=== PATIENT | female | born 1990 | race Caucasian/White ===

== ENCOUNTER → 2017-02-02 18:09 | Observation (INO) ==
[2017-02-02 17:33] LABS: Bilirubin,Urine Negative (Negative); Blood,Urine Negative (Negative); Clarity,Urine Cloudy (Clear); Color,Urine Yellow (Yellow); Glucose,Urine (UA) Normal (Normal); Ketones,Urine Negative (Negative); Leukocyte Esterase,Urine Trace (Negative); Nitrite,Urine Negative (Negative); PH,Urine 6.5 pH Units (5.0-8.0); Protein,Urine Negative (Neg-Trace); Specific Gravity,Urine 1.012 (1.010-1.025); Urobilinogen,Urine Normal (Normal)
[2017-02-02 17:36] LABS: Bacteria,Urine Few per hpf (None-Few); Hyaline Casts,Urine None Seen per lpf (None-Few); RBC,Urine 0-3 per hpf (0-3); Squamous Epithelial Cell,Urine Many per lpf (None-Few)
--- NOTE | 2017-02-02 17:38 | Discharge Summary ---
Date of Encounter: 02/02/17 Time of Encounter: 17:39 - Discharge Diagnosis (1) 34 weeks gestation of Priority: Primary Status: Acute Comments: observation for rule out rupture of membranes (2) Vaginal discharge during in third trimester Priority: Secondary Status: Acute Comments: Negative nitrazine Negative Fern - Discharge Medications Home Medications: Vit Calc,Iron,Folic [ Vitamins] 1 tab PO DAILY 02/02/17 [ History] Allergies/Adverse Reactions: Allergies clarithromycin [From Biaxin] Allergy (Verified 02/02/17 17:03) Vomiting Date of admission: 02/02/17 16:58 Primary care physician: PCP NEETU Discharging clinician: Jacki Nye Anticipated date of discharge: 02/02/17 - Patient Status Disposition: Home, Self-Care Condition: Good - Discharge Instructions Follow Up With: NEETU,PCP [Primary Care Provider] - Brittany Monique DO [Partnered Physician] - - Diet and Activity Activity: increase activity as tolerated Diet: regular diet 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 Patient reports occasional cramping. Denies any urinary symptoms, vaginal itching or burning or VB. Patient reports + FM. Time Attestation: Total time spent providing and/or coordinating discharge services: Time Spent: Less than 30 minutes Exam - Constitutional General appearance IM: A&O X 3, pleasant, answers questions appropriately - Respiratory Respiratory exam: Present: CTAB - Cardiovascular Cardiovascular exam IM: Present: RRR, +S1, +S2 - GI/Abdominal GI/Abdominal exam IM: normal bowel sounds - Other Additional findings: FHR 140 bpm moderate variability +15x15 accels no decels noted. CAt. 1 tracing. No contractions. Speculum exam: no pooling, small amount of white discharge noted. Fern negative. Nitrazine negative. - VTE Reasons for not Prescribing Prophylaxis: Treatment not Indicated - Low risk for VTE
== END | disposition home or self-care (01) ==
LOC: 1NENULAB
PROVIDERS: ADMIT Advanced Practice Midwife; ATTEND Obstetrics & Gynecology

== ENCOUNTER 2017-03-04 09:40 | Inpatient (IN) ==
[2017-03-04 02:29] LABS: Bilirubin,Urine Negative (Negative); Blood,Urine Small (Negative); Clarity,Urine Clear (Clear); Color,Urine Yellow (Yellow); Glucose,Urine (UA) Normal (Normal); Ketones,Urine >=160 mg/dL (Negative); Leukocyte Esterase,Urine Trace (Negative); Nitrite,Urine Negative (Negative); Protein,Urine Trace mg/dL (Neg-Trace); Specific Gravity,Urine >= 1.030 (1.010-1.025); Urobilinogen,Urine Normal (Normal)
[2017-03-04 02:38] LABS: Squamous Epithelial Cell,Urine Moderate per lpf (None-Few)
[2017-03-04 02:39] LABS: Bacteria,Urine Moderate per hpf (None-Few); Mucus,Urine Moderate (Few); WBC,Urine 0-3 per hpf (0-3)
--- NOTE | 2017-03-04 04:52 | OB/GYN History & Physical ---
Date of Encounter: 03/04/17 Time of Encounter: 04:45 Assessment and Plan (1) 38 weeks gestation of Current visit: Yes Status: Acute admit for observation if patient continues to actively labor will admit for delivery CBC and Plock at this time (2) Group B streptococcal infection during Current visit: Yes Status: Acute If continuance of cervical change will start GBS prophylaxis. (3) Gestational diabetes mellitus Current visit: Yes Status: Acute Glucose level drawn accuchecks Q 2 hours Qualifiers: Gestational diabetes mellitus control: diet-controlled Trimester: third trimester Qualified Code(s): O24.410 - Gestational diabetes mellitus in , diet controlled History of Present Illness Chief complaint: Contrations HPI: Ms. Ruiz is a 26 year old female @ 38w3d presents to labor and delivery with complaints of contractions. Patient denies LOF or VB. Patient denies any urinary symptoms. Patient reports +FM. Patient denies any intercourse. 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 Patient reports history of one "pimple" that was painful but she thought was from shaving. Patient denies ever taking medication for outbreaks. Both an external perineal exam and vaginal exam with speculum was completed and no sign of HSV outbreak was found. Blood type: O+, Rubella: Immune, Hep B: Nonreactive, Hep C: reactive, Group B Strep: Positive. Patient is a diet controlled GDM. Past Med Surg Social Fam HX - Past Medical History Source: patient Medical history: seizures Psychiatric history: no psych history - Past Surgical History Surgical History: other (ACL repair and wisdom teeth) - Social History Smoking Status: Never smoker Smokeless Tobacco Status: No Alcohol use: none Drug use: none Current living situation: Home - Independent Activity Level: Independent ambulation Recent Out of Country Travel Within the Last 8 Weeks: No Exposure or Possible Exposure to Illness During Travel: No - Family History Mother Living Status: Still Living Hx Family Cardiac Disorders: No Hx Family Respiratory Disorders: No Hx Family Cancer: No Hx Family GI Disorders: No Hx Family Genitourinary Disorders: No Hx Family Endocrine Disorder: No Hx Family Musculoskeletal Disorders: No Hx Family Neuromuscular Disorders: No Hx Family Neurologic Disorders: No Hx Family HEENT Disorders: No Hx Family Autoimmune Disorders: No Hx Family Reproductive Disorders: No Hx Family Psychosocial Disorders: No Hx Family Medical Disorders: No Obstetrical History - Pregnancies : 2 Para: 1 Term: 1 : 0 Ab's: 0 Livin Medications and Allergies Vit Calc,Iron,Folic [ Vitamins] 1 tab PO DAILY 02/02/17 [ History] Calcium Carbonate [Tums] 1,000 mg PO Q4HR 03/04/17 [History] Allergies clarithromycin [From Biaxin] Allergy (Verified 02/02/17 17:03) Vomiting Review of System OB - Constitutional Constitutional ROS IM: no chills, no fever(s), no night sweats - Cardiovascular Cardiovascular: no chest pain, no irregular heart rhythm, no palpitations, no syncope - Respiratory Respiratory: no cough, no dyspnea - Gastrointestinal Gastrointestinal: no constipation, no diarrhea, no heartburn, no nausea, no vomiting - Genitourinary Genitourinary: no abnormal vaginal bleeding, no dysuria, no flank pain, no urinary urgency, no vaginal discharge, no vaginal odor Exam - Constitutional Constitutional: well developed, well nourished, no acute distress, average body habitus - HEENT HEENT: Normocephaly, Mucus Membranes Moist - Neck Neck exam: full ROM, supple - Lungs Respiratory exam: CTAB - Cardiovascular Cardiovascular exam: RRR, +S2 - Abdomen Abdomen: Present: bowel sounds normal, gravid, non tender - Extremities Extremities exam: full ROM, normal capillary refill, normal inspection Deep Tendon Reflex Grade: 2+ Normal - Vagina Vagina: Present: normal moisture - Cervix Dilation: 2 (per RN) - Uterus Uterus exam: Present: normal size, normal contour - Anus/Rectum Anus/Rectum: Present: normal perianal skin - Comments Comments: FHR 135 bpm moderate variability +15x15 accels no decels noted. Contractions 1- 4 min apart. Cat. 1 tracing. Speculum exam: small amount of clear watery discharge noted. Negative nitrazine, negative Fern. No signs of HSV outbreak. Results Abnormal lab results Ur Specific [place] >= 1.030 (1.010-1.025) H 03/04/17 02:20 Urine Ketones >=160 mg/dL (Negative) H 03/04/17 02:20 Urine Blood Small (Negative) H 03/04/17 02:20 Ur Leukocyte Esterase Trace (Negative) H 03/04/17 02:20 Ur Squamous Epith Cells Moderate per lpf (None-Few) H 03/04/17 02:20 Urine Bacteria Moderate per hpf (None-Few) H 03/04/17 02:20 Urine Mucus Moderate (Few) H 03/04/17 02:20 Ur Culture Indicated? YES (NO) A 03/04/17 02:20 All other labs normal. - VTE Reasons for not Prescribing Prophylaxis: Treatment not Indicated - Low risk for VTE
[2017-03-04 04:56] LABS: Basophils % 0.2 %; Eosinophils % 0.2 %; Hematocrit 35.8 % (35.3-44.9); Hemoglobin 12.1 g/dL (11.5-15.4); Immature Granulocytes % 0.9 % (0-4); Lymphocytes # 2.9 K/mcL (0.6-4.6); Lymphocytes % 26.7 %; Mean Corpuscular HGB Conc 33.8 g/dL (31.6-35.5); Mean Corpuscular Hemoglobin 28.9 pg (28.0-33.3); Mean Corpuscular Volume 85.6 fL (83.0-100.0); Mean Platelet Volume 11.4 fL (9.4-12.4); Monocytes # 0.6 K/mcL (0.0-1.3); Monocytes % 5.6 %; Neutrophils # 7.3 K/mcL (1.6-8.9); Platelet Count 154 K/mcL (140-400); Red Blood Count 4.18 M/mcL (3.82-4.97); Red Cell Distribution Width 12.8 % (11.5-14.5); Segmented Neutrophils % 66.4 %
[2017-03-04] MEDS: Ringers Solution, Lactated 1,000 ML IVC SCH ×3 (05:06→13:44)
--- NOTE | 2017-03-04 09:27 | OB Labor Progress Note ---
Date of Encounter: 03/04/17 Time of Encounter: 09:30 Labor Progress Note - Subjective Subjective: Pt states contractions are getting stronger. - Cervix Cervix: 3/80/-1 - Heart Tones Heart Tones: Category I - Plan Plan: Admit for labor. Begin PCN for GBS ppx. Will augment with AROM with second dose of PCN if needed. Epidural when requested. Anticipate .
[~2017-03-04 09:40] MED LIST: Penicillin G Potassium 5,000,000 UNIT in D5% in Water (Mini-Bag+) 100 ML IVPB ONE
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
[2017-03-04] MEDS ORDERED: Penicillin G Potassium 2,500,000 UNIT in D5% in Water 100 ML IVPB SCH (13:00)
--- NOTE | 2017-03-04 13:01 | OB Labor Progress Note ---
Date of Encounter: 03/04/17 Time of Encounter: 12:59 Labor Progress Note - Subjective Subjective: Pt reports contractions are continuing to get stronger. - Cervix Cervix: 4/80/-1, BBOW - Heart Tones Heart Tones: Category I - [place]: 2-4minutes - Interventions Interventions: AROM for large amount clear fluid - Plan Plan: Continue to monitor. Epidural when requested. Anticipate .
[2017-03-04] MEDS ORDERED: Ondansetron 4 MG/2 ML VIAL IVP PRN ×2 (13:32→14:55)
[2017-03-04] MEDS ORDERED: *HR* FentaNYL (PF) 100 MCG/2 ML VIAL ONE (13:58)
[2017-03-04] MEDS ORDERED: Epidural Premix (fent/bupiv) 110 ML EP ONE (13:58)
[2017-03-04] MEDS ORDERED: Bupivacaine-MPF 0.25% 10 ML VIAL ONE (13:58)
[2017-03-04] MEDS ORDERED: *HR* Phenylephrine 10 MG/ML VIAL ONE (13:59)
[2017-03-04] MEDS ORDERED: EPHEDrine 50 MG/ML VIAL ONE (14:37)
[2017-03-04] MEDS ORDERED: *HR* FentaNYL (PF) 100 MCG/2 ML VIAL EP ONE (14:55)
[2017-03-04] MEDS ORDERED: Bupivacaine-MPF 0.25% 10 ML VIAL EP ONE (14:55)
[2017-03-04] MEDS ORDERED: EPHEDrine 50 MG/ML VIAL IVP PRN (14:55)
[2017-03-04] MEDS ORDERED: Epidural Premix (fent/bupiv) 110 ML EP SCH (15:00)
--- NOTE | 2017-03-04 15:00 | Anesthesia Procedures ---
Date of Encounter: 03/04/17 Time of Encounter: 14:03 Procedures: Anesthesia - Epidural/Spinal Patient ID/Chart reviewed: Yes Patient examined: Yes OB Eval: Gestational age: 38.3 OB Eval: : 2 OB Eval: Hx Para: 1 OB Eval: Dilated at (cm): 4 OB Eval: Contractions: Non-stressed pattern Consent Obtained: Yes Supplemental Oxygen: None/Room Air Site Prep: Aseptic Technique, Sterile prep and drape, Povidone-Iodine 1% Patient position: upright Local Anesthetic: Lidocaine 1% Amount of Local Anesthetic used: 3 Touhy Needle Gauge: 18 Touhy Needle Depth (cm): 8 Catheter Depth at Skin (cm): 16 Test Dose (1.5% Lido + Epi): Volume given (mls): 3 Test Dose Result: Negative Loading Dose: 0.25% Marcaine (mls): 6 Loading Dose: Fentanyl (mcg): 100 Loading Dose Administered: Thru Catheter Infusion Med: 0.125% Bupivacaine w/ 2 mcg/ml Fentanyl Infusion Rate (mls/hr): [address]: Tegaderm, Tape Interspace Used: L4-L5 Loss of Resistance (JOLYNN): Yes Blood: No CSF: No Paresthesia: No Procedure: ALICIA placed in upright position 1st pass. Test dose negative. Bolus dose 6ml administered, BP decreased and FHT drop to 80s. Pt repositioned to left side, O2 administered, with return of BP and FHT WNL. Pt comfortable with loss of contractional discomfort. Vitals + FHT's: 1403 BP 134/76 P90 1427 Bolus BP 135/81 P 109 R 16 1433 97/46 P 127 Phenylephrine dose 200mcg 1500 BP 121/66 P 81 FHT 130s
--- NOTE | 2017-03-04 15:09 | OB Labor Progress Note ---
Date of Encounter: 03/04/17 Time of Encounter: 15:06 Labor Progress Note - Subjective Subjective: Pt reports no pain with contractions following epidural. - Cervix Cervix: 5/80/-1 - Heart Tones Heart Tones: bradycardia noted for a short time due to hypotension after epidural bolus. Pt repositioned and bolus given. 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 FHT returned to baseline. - [place]: 2-6 minutes - Interventions Interventions: IUPC placed. Patel catheter placed. Light yellow urine returned. Balloon inflated with 10ml. Pt tolerated well. - Plan Plan: Continue to monitor. Will augment with Pitocin as needed for adequate contractions. Anticipate .
[2017-03-04] MEDS ORDERED: Oxytocin 20 units/ LR 1000 mL 20 UNIT/1,000 ML BAG IVC SCH ×2 (15:15→20:38)
--- NOTE | 2017-03-04 18:42 | OB/GYN Procedure Note ---
Delivery - Delivery Date: 03/04/17 Provider: Fany Gaona Intrapartum events: none Delivery induction: none Delivery augmentation: rupture of membranes, pitocin - (s) A Delivery Date: 03/04/17 Delivery Time: 18:13 Presentation: vertex Position: LUCILLE Route of delivery: Gender: Male Pounds: 6 Ounces: 12 Weight Gram: 3055 kg at 1 minute: 8 at 5 mins: 9 Shoulder Dystocia: not encountered Specimens collected: cord blood Placenta: spontaneous Cord: nuchal cord, 3 umbilical vessels, nuchal reduced - Repair Episiotomy: none Laceration Description: None - Complications Delivery complications: none Delivery comments: 26 year-old presented for spontaneous onset of labor. She received an epidural and then was augmented with AROM and Pitocin. She progressed to over intact perineum for viable male weighing 6lbs 12oz with apgars 8/9. After a three minute delay the cord was clamped and cut and the placenta delivered spontaneous and intact. No lacerations were noted. EBL 100ml. Mother and baby stable in kangaroo care following delivery. - Disposition Mom disposition: stable in LDR [place] disposition: stable in LDR
[2017-03-04] MEDS ORDERED: Rho Immune Globulin 1,500 UNIT SYRINGE IM PRN (20:38)
[2017-03-04] MEDS ORDERED: Acetaminophen 325 MG TABLET PO PRN (20:38)
[2017-03-04] MEDS ORDERED: Measles/Mumps/Rubella Vacc 0.5 ML VIAL SQ PRN (20:38)
[2017-03-05] MEDS: Ibuprofen 600 MG TABLET PO PRN ×3 (03:43→20:45)
[2017-03-05] MEDS: Prenatal Vit/FA 1 EACH TABLET PO SCH (10:03)
--- NOTE | 2017-03-05 10:25 | OB/GYN Progress Note ---
Date of Encounter: 03/05/17 Time of Encounter: 10:23 - Assessment and Plan (1) Vaginal delivery Current Visit: Yes Status: Acute Pt meeting milestones. Anticipate discharge home PPD#2. (2) Gestational diabetes mellitus Current Visit: Yes Status: Acute Pt will need 2 hour GTT in 6 weeks. Qualifiers: Gestational diabetes mellitus control: diet-controlled Trimester: third trimester Qualified Code(s): O24.410 - Gestational diabetes mellitus in , diet controlled Subjective - Subjective Patient reports: appetite normal, voiding normally, pain well controlled, ambulating normally [place]: doing well Objective - Latest Vital Signs Latest vital signs: Vital Signs Temp Pulse Resp BP Pulse Ox 03/05/17 09:57 16 03/05/17 08:59 98.3 F 88 16 117/73 97 03/05/17 03:57 98.3 F 79 16 113/75 97 03/04/17 22:52 98.7 F 94 16 111/72 96 03/04/17 21:47 98.5 F 82 16 117/74 98 03/04/17 20:40 98.7 F 95 16 112/72 97 Intake and Output 03/04/17 03/05/17 03/05/17 23:59 07:59 15:59 Intake Total 1000 / 1000 1000 / 1000 720 / 720 Output Total 2250 / 2250 1200 / 1200 200 / 200 Balance -1250 / -1250 -200 / -200 520 / 520 Intake: IV Fluids 1000 / 1000 Pitocin 20 unit In 1,000 1000 / 1000 ml @ Per Protocol IVC . Q0M [facility] Rx#:[id number] Oral 1000 / 1000 720 / 720 Output: Urine 1850 / 1850 1200 / 1200 200 / 200 Estimated Blood Loss 100 / 100 Catheter 300 / 300 Other: Meal Breakfast Percent of Meal Consumed 100% Weight 98.4 kg 98.6 kg Patient Weight 03/05/17 23:59 Weight 98.6 kg - Exam Lungs: bilateral: normal Chest: Normal S1, Normal S2 Extremities: Present: normal Abdomen: Present: soft Uterus: Present: firm - Labs Labs: Laboratory Results - last 24 hr 03/04/17 03/04/17 10:17 12:11 POC Glucose 88 79
[2017-03-06] MEDS: Ibuprofen 600 MG TABLET PO PRN (05:51)
[2017-03-06] MEDS: Prenatal Vit/FA 1 EACH TABLET PO SCH (08:29)
[2017-03-06 09:04] VITALS: BP 105/73
--- NOTE | 2017-03-06 11:42 | Discharge Summary ---
Date of Encounter: 03/06/17 Time of Encounter: 11:41 - Discharge Diagnosis (1) Vaginal discharge during in third trimester Priority: Primary Status: Acute Comments: Doing well, will d/c home - Discharge Medications Prescriptions: Ibuprofen [Motrin] 600 mg PO Q6HR PRN #40 tablet PRN Reason: Cramping Home Medications: Vit Calc,Iron,Folic [ Vitamins] 1 tab PO DAILY 02/02/17 [ History] Calcium Carbonate [Tums] 1,000 mg PO Q4HR 03/04/17 [History] Ibuprofen [Motrin] 600 mg PO Q6HR PRN #40 tablet 03/06/17 [Rx] Allergies/Adverse Reactions: Allergies clarithromycin [From Biaxin] Allergy (Verified 02/02/17 17:03) Vomiting Data Procedures and tests throughout hospitalization: Laboratory Tests 03/04/17 03/04/17 03/04/17 02:20 04:45 04:45 WBC 11.0 RBC 4.18 Hgb 12.1 Hct 35.8 MCV 85.6 MCH 28.9 MCHC 33.8 RDW 12.8 Plt Count 154 MPV 11.4 Immature Gran % 0.9 Seg Neutrophils % 66.4 Lymphocytes % 26.7 Monocytes % 5.6 Eosinophils % 0.2 Basophils % 0.2 Neutrophils # 7.3 Lymphocytes # 2.9 Monocytes # 0.6 Eosinophils # 0.0 Basophils # 0.0 Glucose 80 POC Glucose Urine Color Yellow Urine Clarity Clear Urine pH 6.0 Ur Specific [place] >= 1.030 H Urine Protein Trace Urine Glucose (UA) Normal Urine Ketones >=160 H Urine Blood Small H Urine Nitrite Negative Urine Bilirubin Negative Urine Urobilinogen Normal Ur Leukocyte Esterase Trace H Urine Microscopic WBC 0-3 Ur Squamous Epith Cells Moderate H Urine Bacteria Moderate H Urine Mucus Moderate H Ur Culture Indicated? YES A Blood Type Antibody Screen Antibody Identification Screen Baby's Blood Type Mother's Blood Type Rhogam Indicated Rhogam Req for Mother 03/04/17 03/04/17 03/04/17 07:37 10:17 12:11 WBC RBC Hgb Hct MCV MCH MCHC RDW Plt Count MPV Immature Gran % Seg Neutrophils % Lymphocytes % Monocytes % Eosinophils % Basophils % Neutrophils # Lymphocytes # Monocytes # Eosinophils # Basophils # Glucose POC Glucose 91 H 88 79 Urine Color Urine Clarity Urine pH Ur Specific [place] Urine Protein Urine Glucose (UA) Urine Ketones Urine Blood Urine Nitrite Urine Bilirubin Urine Urobilinogen Ur Leukocyte Esterase Urine Microscopic WBC Ur Squamous Epith Cells Urine Bacteria Urine Mucus Ur Culture Indicated? Blood Type Antibody Screen Antibody Identification Screen Baby's Blood Type Mother's Blood Type Rhogam Indicated Rhogam Req for Mother 03/04/17 19:13 WBC RBC Hgb Hct MCV MCH MCHC RDW Plt Count MPV Immature Gran % Seg Neutrophils % Lymphocytes % Monocytes % Eosinophils % Basophils % Neutrophils # Lymphocytes # Monocytes # Eosinophils # Basophils # Glucose POC Glucose Urine Color Urine Clarity Urine pH Ur Specific [place] Urine Protein Urine Glucose (UA) Urine Ketones Urine Blood Urine Nitrite Urine Bilirubin Urine Urobilinogen Ur Leukocyte Esterase Urine Microscopic WBC Ur Squamous Epith Cells Urine Bacteria Urine Mucus Ur Culture Indicated? Blood Type O NEGATIVE Antibody Screen TNP Antibody Identification Cancelled Screen NEGATIVE Baby's Blood Type A RH POSITIVE Mother's Blood Type O RH NEGATIVE Rhogam Indicated YES Rhogam Req for Mother 1 Labs on day of discharge: Labs from last 24 hours 03/04/17 19:13 Blood Type O NEGATIVE Antibody Screen TNP Antibody Identification Cancelled Screen NEGATIVE Baby's Blood Type A RH POSITIVE Mother's Blood Type O RH NEGATIVE Rhogam Indicated YES Rhogam Req for Mother 1 - Impressions Doing well, no c/o Date of admission: 03/04/17 09:41 Primary care physician: PCP NO - Patient Status Disposition: Home, Self-Care Condition: Good Overall status at discharge: patient is back to baseline - Discharge Instructions - Diet and Activity Activity: increase activity as tolerated Diet: advance to your usual diet 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: Total time spent providing and/or coordinating discharge services: Exam - Constitutional Vitals: Temp Pulse Resp BP Pulse Ox 98.2 F 83 16 105/73 98 03/06/17 09:00 03/06/17 09:00 03/06/17 09:00 03/06/17 09:00 03/06/17 09:00 General appearance IM: A&O X 3 - Respiratory Respiratory exam: Present: CTAB - Cardiovascular Cardiovascular exam IM: Present: RRR - GI/Abdominal GI/Abdominal exam IM: normal bowel sounds - Uterus Position: 2 Fingers Above Umbilicus - Extremities Exam Extremities exam IM: Present: full ROM - Neurological Exam Neurological exam: oriented X3 - VTE Reasons for not Prescribing Prophylaxis: Treatment not Indicated - Low risk for VTE
== END 2017-03-06 12:32 | disposition home or self-care (01) | DRG 560 ==
LOC: 1NENULAB → 1NENUOBS 20:58